=== PATIENT | female | born 2000 | race Caucasian/White ===

== ENCOUNTER 2023-03-25 11:21 | Emergency (ER) | payer OTHER ==
[~2023-03-25] VITALS: Ht 177.8 cm; Wt 108.9 kg
[2023-03-25 11:23] VITALS: BP 143/93
[2023-03-25] MEDS ORDERED: MUCI600T31 PO (11:40)
[2023-03-25] MEDS ORDERED: Advil PO (11:40)
[2023-03-25] MEDS ORDERED: AMOX875T2 PO (12:09)
[2023-03-25] MEDS ORDERED: AUGMENTIN 875 MG TAB PO ONE (12:10)
== END 2023-03-25 12:30 | disposition home or self-care (01) ==
LOC: M ED 11:21
DX: J02.9 Acute pharyngitis, unspecified (principal); J01.90 Acute sinusitis, unspecified

== ENCOUNTER 2023-03-27 18:14 | Emergency (ER) | payer OTHER ==
[~2023-03-27] VITALS: Ht 177.8 cm; Wt 107.5 kg
[~2023-03-27 18:14] MED LIST: AMOX875T2 PO; Advil PO; MUCI600T31 PO
[2023-03-27 18:15] VITALS: BP 142/88
[2023-03-27] MEDS ORDERED: diphenhydrAMINE 50MG/ML VIAL IV STA (19:29)
[2023-03-27] MEDS ORDERED: NS 1,000 ML IV ONE (19:30)
[2023-03-27] MEDS ORDERED: LIDOCAINE VISCOUS 2% SOLN 15ML UDC SS ONE (19:30)
[2023-03-27 20:00] LABS: BASO # 0.1 10^3/uL (0.0-0.2); BASO % 0.5 % (0.0-1.0); EOS # 0.1 10^3/uL (0.0-0.5); EOS % 0.5 % (0.0-3.0); HEMATOCRIT 42.6 % (36.0-47.0); HEMOGLOBIN 14.2 g/dl (12.0-15.5); LYMPH # 2.1 10^3/uL (1.5-5.0); LYMPH % 13.7 % (24.0-44.0); MEAN CORPUSCULAR HEMOGLOBIN 29.6 pg (27.0-33.0); MEAN CORPUSCULAR HGB CONC 33.3 g/dl (32.0-36.5); MEAN CORPUSCULAR VOLUME 88.8 fl (80.0-96.0); MONO # 0.8 10^3/uL (0.0-0.8); MONO % 5.3 % (2.0-8.0); NEUTROPHILS # 12.1 10^3/uL (1.5-8.5); NEUTROPHILS % 79.1 % (36.0-66.0); PLATELET COUNT, AUTOMATED 373 10^3/uL (150-450); WHITE BLOOD COUNT 15.3 10^3/uL (4.0-10.0)
[2023-03-27 20:08] LABS: ERYTHROCYTE SEDIMENTATION RATE 49 mm/hr (0-20)
[2023-03-27] MEDS ORDERED: ISOVUE-370 76% 100ML VIAL As Ordered ONE (20:16)
[2023-03-27] MEDS ORDERED: CEFD300C41 PO (22:29)
[2023-03-27] MEDS ORDERED: LIDO15SO PO (22:29)
[2023-03-27] MEDS ORDERED: PRED20TA PO (22:29)
[2023-03-27] MEDS ORDERED: CEFDINIR 300 MG CAP (OMNICEF) PO ONE (22:35)
== END 2023-03-27 22:44 | disposition home or self-care (01) ==
LOC: M ED 18:14
DX: J02.9 Acute pharyngitis, unspecified (principal); J03.90 Acute tonsillitis, unspecified; L50.9 Urticaria, unspecified; D72.829 Elevated white blood cell count, unspecified; I10 Essential (primary) hypertension
CPT/HCPCS: 70491; 80047; 84702; 85025; 85652; 86140; 96361; 96374; 96375; 99284; J1100; J1200; Q9967

== ENCOUNTER 2023-05-30 13:59 | Emergency (ER) | payer OTHER ==
[~2023-05-30] VITALS: Ht 177.8 cm; Wt 109.4 kg
[~2023-05-30 13:59] MED LIST changes: +CEFD300C41 PO; +LIDO15SO PO; +PRED20TA PO
[2023-05-30 15:10] LABS: RSV AMPLIFICATION NEGATIVE (NEGATIVE)
[2023-05-30] MEDS ORDERED: IBUP-1022 PO (17:23)
[2023-05-30] MEDS ORDERED: BENZ-18 PO (17:23)
[2023-05-30 17:39] VITALS: BP 127/88; TEMP 96.8; O2SAT 99
== END 2023-05-30 17:41 | disposition home or self-care (01) ==
LOC: M ED 13:59
DX: J06.9 Acute upper respiratory infection, unspecified (principal); Z20.822 Contact with and (suspected) exposure to COVID-19; I10 Essential (primary) hypertension; G43.909 Migraine, unspecified, not intractable, without status migrainosus; Z88.0 Allergy status to penicillin